=== PATIENT | female | born 1980 | race African-American/Black ===

== ENCOUNTER → 2016-08-05 | Outpatient (CLI) | payer MEDICARE, OTHER ==
[2014-07-01 11:42] VITALS: BP 158/69
--- NOTE | 2016-08-05 13:44 | EKG ---
[facility] [address] [place] [address] Test Date: 2016-08-05 Test Time: 13:43:19 Pat Name: EDITH WOOTEN Department: Room: Gender: F [employer] Operator: LOUANN : 1980 Requested By: STAFF NON Order Number: [id number] Reading MD: Emory Hernandez Measurements Intervals [place] Rate: 97 P: 43 [place]: 186 QRS: -82 QRSD: 120 T: 26 QT: 392 QTc: 503 Interpretive Statements SINUS RHYTHM LEFT AXIS DEVIATION LEFT ANTERIOR FASCICULAR BLOCK ABNORMAL ECG RI6.01 No previous ECG available for comparison Electronically Signed On 08-06-2016 11:42:16 CDT by Emory Hernandez
--- NOTE | 2016-08-05 16:30 | RAD ---
Examination: 2 views of the chest. History: History of predental treatment with general anesthesia Comparison: None available Findings: Low lung volumes accentuates heart size and pulmonary vascularity. Probable mild cardia megaly. There is mild prominence of bilateral interstitial lung markings could be due to low lung volumes or minimal congestive changes. Impression: 1. Mild cardiomegaly. Probable mild prominent appearing bilateral interstitial lung markings could be due to low lung volumes or mild congestive changes.
== END | disposition home or self-care (01) ==
LOC: EKG 13:18
PROVIDERS: ATTEND Dentist
DX: Z01.818 Encounter for other preprocedural examination (principal); K05.6 Periodontal disease, unspecified
CPT/HCPCS: 71020; 93005